=== PATIENT | male | born 1970 | race Caucasian/White ===

== ENCOUNTER 2017-09-25 06:00 | Emergency (ER) ==
[2017-09-25 06:17] VITALS: BP 154/98; TEMP 96.2; BMI 40.2
--- NOTE | 2017-09-25 07:00 | ED.PDOC ---
General Stated Complaint: Back pain on the left side rotating to the left abdomen. Started after he was hit by revolving door while in [place]. He has a history of Back surgery in 2016, for broken verteres. Time Seen by Physician: 06:56 Mode of Arrival: Walk-In Information Source: Patient Nursing and Triage Documentation Reviewed and Agree: Yes Does patient meet sepsis criteria?: No If yes, has appropriate treatment been initiated?: No System Inflammatory Response Syndrome: Not Applicable <MOISES ADLER - Last Filed: 09/25/17 06:56> <HALIMA ESPINO - Last Filed: 09/25/17 07:10> ED Provider: Dr. HALIMA ESPINO Chief Complaint: Back Pain Primary Care Provider: AKIRA CATALAN Sepsis Protocol: For patient's 13 years and over: Temp is 96.8 and below OR 101 and greater Pulse >90 BPM Resp >20/minute Acutely Altered Mental Status Are patient's symptoms suggestive of a new infection, such as: -Pneumonia -Skin, Soft Tissue -Endocarditis -UTI -Bone, Joint Infection -Implantable Device -Acute Abdominal Infection -Wound Infection -Meningitis -Blood Stream Catheter Infection -Unknown Review of Systems - Review Of Systems Constitutional: Reports: No symptoms Eyes: Reports: No symptoms Ears, Nose, Mouth, Throat: Reports: No symptoms Respiratory: Reports: No symptoms Cardiac: Reports: No symptoms GI: Reports: No symptoms : Reports: No symptoms Musculoskeletal: Reports: Back pain Skin: Reports: No symptoms Neurological: Reports: No symptoms Endocrine: Reports: No symptoms Hematologic/Lymphatic: Reports: No symptoms All Other Systems: Reviewed and Negative <MOISES ADLER - Last Filed: 09/25/17 06:56> Past Medical History - Past Medical History Endocrine: Reports: DM 2 Cardiovascular: Reports: Hypertension Respiratory: Reports: None Hematological: Reports: None Gastrointestinal: Reports: None Genitourinary: Reports: None Neuro/Psych: Reports: Anxiety, Other (OCD) Musculoskeletal: Reports: Arthritis, Back Pain Cancer: Reports: None Other Pertinent Past Medical History: Neuropathy - Surgical History General Surgical History: Reports: Back Surgery - Family History Family History: Reports: Unknown - Social History Smoking Status: Never smoker Hx Substance Use: No Alcohol Screening: None - Immunizations Tetanus Shot up to Date: Yes <MOISES ADLER - Last Filed: 09/25/17 06:56> Physical Exam - Physical Exam Appearance: Well-appearing, No pain distress, Well-nourished Eyes: TYLER, EOMI, Conjunctiva clear ENT: Ears normal, Nose normal, Oropharynx normal Respiratory: Airway patent, Breath sounds clear, Breath sounds equal, Respirations nonlabored Cardiovascular: RRR, Pulses normal, No rub, No murmur GI/: Soft, Nontender, No masses, Bowel sounds normal, No Organomegaly Musculoskeletal: Normal strength, ROM intact, No edema, No calf tenderness Skin: Warm, Dry, Normal color Neurological: Sensation intact, Motor intact, Reflexes intact, Cranial nerves intact, Alert, Oriented Psychiatric: Affect appropriate, Mood appropriate <HALIMA ESPINO Filed: 09/25/17 07:10> Re-Evaluation - Re-Evaluation Time of Re-Evaluation: 07:00 Status: Improved Vital Signs Stable: Yes Pain Level: 2 Appearance: NAD Lungs: Clear Skin: Warm and Dry Neuro: Alert and Oriented X3 CV: RRR Additional Comments: AMBULATORY SEEN WITH BRIAN AT ALL TIMES S.L.R NORMAL BILATERALLY <HALIMA ESPINO Filed: 09/25/17 07:10> Physician Notification - Case Discussed Endorsed To/Discussed With: Dr. Cintron Time of Discussion: 07:02 <MOISES ADLER Filed: 09/25/17 06:56> Critical Care Note - Critical Care Note Total Time (mins): 0 <HALIMA ESPINO Filed: 09/25/17 07:10> - Course Vital Signs: Temp Pulse Resp BP Pulse Ox 09/25/17 06:00 96.2 F L 83 20 154/98 H 98 Departure <MOISES ADLER Roberto Filed: 09/25/17 06:56> - Departure Time of Disposition: 07:08 (seen with brian pt walked to bathroom and back. exam NORMAL SLR BILATERALLY) Pt referred to PMD for follow-up: Yes IPMP verified?: No <HALIMA ESPINO Filed: 09/25/17 07:10> - Departure Disposition: HOME SELF-CARE Discharge Problem: Low back pain Qualifiers: Chronicity: unspecified Back pain laterality: unspecified Sciatica presence: unspecified whether sciatica present Qualified Code(s): M54.5 - Low back pain Instructions: Acute Low Back Pain (ED) Condition: Good Allergies/Adverse Reactions: Allergies No Known Allergies Allergy (Verified 09/25/17 06:17) Home Medications: Ambulatory Orders Glyburide [Diabeta] 10 mg PO DAILY 09/30/12 Metformin HCl [Metformin HCl ER] 1,000 mg PO BID 09/30/12 Atorvastatin Calcium 40 mg PO DAILY 09/25/17 Bupropion HCl [Wellbutrin Xl] 150 mg PO DAILY 09/25/17 Buspirone HCl 10 mg PO DAILY 09/25/17 Canagliflozin [Invokana] 300 mg PO DAILY 09/25/17 Dulaglutide [Trulicity] 1.5 mg SQ WEEKLY 09/25/17 Escitalopram Oxalate [Lexapro] 20 mg PO DAILY 09/25/17 Hydrocodone/Acetaminophen [Hydrocodon-Acetaminophen 5-325] 1 each PO QID PRN 10/05 Losartan/Hydrochlorothiazide [Losartan-Hctz 100-25 mg Tab] 1 tab PO DAILY Meloxicam 15 mg PO DAILY 09/25/17 Pregabalin [Lyrica] 50 mg PO BID 09/25/17
--- NOTE | 2017-09-25 08:24 | CT ---
EXAM: CT lumbar spine without contrast. HISTORY: Initial presentation for back trauma. COMPARISON: None available. TECHNIQUE: Multiple axial images of the lumbar spine were obtained without intravenous contrast. Im ages were reformatted in the sagittal and coronal planes. FINDINGS: T12 compression deformity has undergone cement fixation. No retropulsion is identified. Lumbar vertebral body heights are normal. Alignment is maintained. Disc heights are normal. No acu te fracture or subluxation detected. T12-L1: Disc osteophyte formation and facet arthropathy without neural compromise. L1-2: Disc osteophyte formation and facet arthropathy without neural compromise. L2-3: Disc osteophyte formation, facet arthropathy and thickening of the ligamentum flavum with mild central canal stenosis and neural foraminal narrowing. L3-4: Disc osteophyte formation, facet arthropathy and thickening of ligamentum flavum with moderate to severe central canal stenosis and bilateral neural foraminal narrowing. L4-5: Disc osteophyte formation, facet arthropathy and thickening of ligamentum flavum with mild lynda tral canal stenosis and moderate neural foraminal narrowing. L5-S1: Disc osteophyte formation and facet arthropathy with mild moderate neural foraminal narrowing . Paravertebral soft tissues without acute abnormality. IMPRESSION: 1. No acute lumbar spine fracture. 2. Degenerative changes as described. 3. T12 compression fracture status post cement fixation.
--- NOTE | 2017-09-25 08:33 | CT ---
EXAM: CT thoracic spine without contrast. HISTORY: Back pain following trauma 2 days prior. Initial presentation. COMPARISON: None available. TECHNIQUE: Multiple axial images of the thoracic spine were obtained without intravenous contrast. Images were reformatted in the sagittal and coronal planes. FINDINGS: Mild to 11 and moderate T12 compression deformities are present which have undergone cemen t fixation. Some extrusion of cement is seen into the T10-11 and T12-L1 discs. No retropulsion iden tified. Vertebral body heights are otherwise normal without acute fracture. Alignment is maintained . Disc osteophyte formation causes mild central canal stenosis at T6-7, moderate right-sided central canal stenosis at T7-8, mild central canal stenosis at T8-9 and moderate central canal stenosis, gre ater on the left, at T9-10. Visualized lungs are clear without pleural effusion or pneumothorax. No visualized posterior rib fra ctures seen. Limited images of the upper abdomen demonstrate cholelithiasis. IMPRESSION: 1. No acute thoracic spine fracture. 2. Old T11 and T12 compression fracture status post cement fixation. 3. Moderate mid to lower thoracic degenerative disc disease as described.
--- NOTE | 2017-09-25 08:36 | CT ---
EXAM: CT chest without contrast. HISTORY: Initial presentation for chest trauma with rib injury 2 days prior. COMPARISON: None available. TECHNIQUE: Multiple axial images of the chest were obtained without intravenous contrast. Images we re reformatted in the sagittal and coronal planes. Three-dimensional reconstructed images were create d on an independent workstation FINDINGS: Evaluation for lymphadenopathy is limited by lack of intravenous contrast. Heart size is normal. No significant pericardial effusion identified. Thoracic aorta is normal in caliber without periaortic hemorrhage. Linear subsegmental atelectasis noted in both lower lobes and the perihilar left upper lobe. Otherwi se, the are clear without pleural effusion or pneumothorax. Mild T11 and moderate T12 compression fracture status post cement fixation noted. No acute appearing thoracic spine fracture identified. Degenerative disc disease with disc osteophyte formation causes multilevel central canal stenosis from T6-7 through T9-10. No rib fracture identified. Limited images of the upper abdomen demonstrate cholelithiasis. IMPRESSION: 1. No acute post-traumatic abnormality of the chest. 2. T11 and T12 compression fracture status post cement fixation.
== END 2017-09-25 08:51 | disposition home or self-care (01) ==
LOC: ED 06:00
DX: M54.5 Low back pain (principal); R10.9 Unspecified abdominal pain; I10 Essential (primary) hypertension; E11.9 Type 2 diabetes mellitus without complications
CPT/HCPCS: 99283